=== PATIENT | male | born 1955 | race Caucasian/White ===

== ENCOUNTER 2019-09-25 07:57 | Outpatient (CLI) | payer OTHER, SELFPAY ==
--- NOTE | ~2019-09-25 | CT_ITS ---
EXAMINATION: CT chest wo con DATE: 09/25/2019 08:25 INDICATION: Diaphragmatic hernia without obstruction or gangrene TECHNIQUE: Computed tomography (CT) of the chest was performed without intravenous contrast. The dose -length product (DLP) was 374.94 mGy-cm. Automated exposure control and iterative reconstruction tech nique were employed. COMPARISON: None FINDINGS: The lungs are free of acute opacities. There is no pleural effusion or pneumothorax. No pat hologically enlarged thoracic lymph nodes are identified. The heart size is normal. Calcified coronar y artery atherosclerosis is noted. There is a large sliding hiatal hernia with intrathoracic location of much of the stomach which demonstrates organoaxial volvulus. There is mild thoracic spondylosis. There is a 1.8 cm mass in the lateral limb of the left adrenal gland. IMPRESSION: 1. Large sliding hiatal hernia containing much of the stomach. 2. Left adrenal nodule, likely an adenoma in the absence of known malignancy. Consider follow-up adre nal CT in 12 months. Reviewed, dictated and finalized at location A. IMPRESSION: 1. Large sliding hiatal hernia containing much of the stomach. 2. Left adrenal nodule, likely an adenoma in the absence of known malignancy. C onsider follow-up adrenal CT in 12 months.
== END 2019-09-25 07:58 | disposition home or self-care (01) ==
PROVIDERS: PCP Physician Assistant; Visit Provider Physician Assistant
DX: K44.9 Diaphragmatic hernia without obstruction or gangrene (principal)
CPT/HCPCS: 71250

== ENCOUNTER 2019-10-25 14:00 | Outpatient (CLI) | payer OTHER, SELFPAY ==
--- NOTE | 2019-10-25 14:27 | ECG_ITS ---
Measurements Intervals [place] Rate: 88 P: 36 [place]: 148 QRS: 17 QRSD: 88 T: -5 QT: 332 QTc: 404 Interpretive Statements SINUS RHYTHM FREQUENT ATRIAL PREMATURE COMPLEXES BORDERLINE ST-T WAVE ABNORMALITY- INF/LAT LEADS ABNORMAL ECG Electronically Signed On 10-25-2019 14:55:40 CDT by Kermit Noble D.O.
== END 2019-10-25 14:01 | disposition home or self-care (01) ==
PROVIDERS: PCP Internal Medicine; Visit Provider Internal Medicine
DX: I49.40 Unspecified premature depolarization (principal); R94.31 Abnormal electrocardiogram [ECG] [EKG]
CPT/HCPCS: 93005

== ENCOUNTER 2020-10-05 09:16 | Outpatient (CLI) | payer OTHER, MEDICARE, SELFPAY ==
--- NOTE | ~2020-10-05 | NM_ITS ---
EXAMINATION: NM stress w perf spect multi DATE: 10/05/2020 12:15 INDICATION: Coronary artery disease and shortness of breath. TECHNIQUE: Rest images were obtained following intravenous administration of 9.5 mCi Tc99m tetrofosmi n ([employer]). The patient performed an exercise activity. At peak exercise, 28.8 mCi Tc99m tetrofosmin (Myoview) was administered intravenously, and stress images were obtained. Data was reconstructed in to short axis and horizontal and vertical long axis SPECT images. Gated SPECT images were also obtain ed. COMPARISON: None. FINDINGS: There is normal left ventricular perfusion without definite evidence of reversible or fixed perfusion abnormality to suggest ischemia or infarction. There is normal left ventricular chamber size, wall motion and ejection fraction. Left ventricular ejection fraction measures 66%. IMPRESSION: 1. Normal myocardial perfusion at rest and during stress. 2. Left ventricular ejection fraction measuring 66%. Reviewed, dictated and finalized at location A.
--- NOTE | 2020-10-05 09:28 | EST_ITS ---
Patient Info Name: Kendrick Mathias Age: 65 years : 1955 Gender: Male Ht: 67 in Wt: 215 lbs BSA: 2.18 m2 Heart Rhythm: Sinus Rhythm Exam Date: 10/05/2020 10:27 AM Exam Location: [facility] Stress Patient Status: Outpatient Admit Date: 10/05/2020 Staff Ordering Physician: Regulo Saldaña PA-C Attending Provider: Regulo Saldaña PA-C Exercise Technologist: Sandra Yang CT Exercise Physician: Kermit Noble DO Exam Type: CA stress test treadmill w NM Study Info Indications R06.02 - Shortness of breath A nuclear stress test was performed. Summary 1. 1. Negative Philip exercise stress test for ischemic ST changes by ECG criteria. 2. 2. Reduced functional capacity, achieving 7 METs of workload. 3. 3. Frequent premature supraventricular complexes. 4. 4. Appropriate HR response to exercise. 5. 5. Appropriate HR recovery at 1 minute post exercise. 6. 6. Baseline hypertension. 7. 7. Nuclear scan to follow and will be reported separately. Please correlate with it. 8. 8. Patient informed of the above results. Protocol: Philip Stress ECG Details Stage: REST Duration (min): 2 min : 17 sec Speed (mph): 0.0 Grade (%): 0 HR (bpm): 80 SBP (mmHg): 168 DBP (mmHg): 100 METS: --- Stage: REST Duration (min): 14 min : 35 sec Speed (mph): 0.0 Grade (%): 0 HR (bpm): 90 SBP (mmHg): 179 DBP (mmHg): 98 METS: --- Stage: STAGE 1 Duration (min): 1 min : 0 sec Speed (mph): 1.7 Grade (%): 10 HR (bpm): 103 SBP (mmHg): 179 DBP (mmHg): 98 METS: --- Stage: STAGE 1 Duration (min): 2 min : 0 sec Speed (mph): 1.7 Grade (%): 10 HR (bpm): 112 SBP (mmHg): 179 DBP (mmHg): 98 METS: --- Stage: STAGE 1 Duration (min): 3 min : 0 sec Speed (mph): 1.7 Grade (%): 10 HR (bpm): 110 SBP (mmHg): 209 DBP (mmHg): 95 METS: --- Stage: STAGE 2 Duration (min): 1 min : 0 sec Speed (mph): 2.5 Grade (%): 12 HR (bpm): 127 SBP (mmHg): 209 DBP (mmHg): 95 METS: --- Stage: STAGE 2 Duration (min): 2 min : 0 sec Speed (mph): 2.5 Grade (%): 12 HR (bpm): 132 SBP (mmHg): 204 DBP (mmHg): 94 METS: --- Stage: STAGE 2 Duration (min): 2 min : 59 sec Speed (mph): 3.4 Grade (%): 14 HR (bpm): 135 SBP (mmHg): 204 DBP (mmHg): 94 METS: --- Stage: RECOVERY Duration (min): 1 min : 0 sec Speed (mph): 0.0 Grade (%): 0 HR (bpm): 116 SBP (mmHg): 195 DBP (mmHg): 91 METS: --- Stage: RECOVERY Duration (min): 1 min : 47 sec Speed (mph): 0.0 Grade (%): 0 HR (bpm): 102 SBP (mmHg): 195 DBP (mmHg): 91 METS: --- Rest HR: 90 bpm Peak HR: 135 bpm Rest Sys BP: 179 mmHg Peak Sys BP: 209 mmHg Max Pred HR: 155 bpm % Max Pred HR: 87 % Target HR: 132 bpm Max RPP: 28,215 bpm*mmHg Cramer Score: -1 Termination Reason: Reached target heart rate or workload Cardiac Symptoms: Shortness of breath Max ST Seg Deviation: -
== END 2020-10-05 09:17 | disposition home or self-care (01) ==
PROVIDERS: PCP Physician Assistant; Visit Provider Physician Assistant
DX: I25.10 Atherosclerotic heart disease of native coronary artery without angina pectoris (principal); R06.02 Shortness of breath
CPT/HCPCS: 78452; 93017; A9502

== ENCOUNTER → 2021-05-05 09:54 | Outpatient (CLI) | payer OTHER, MEDICARE, SELFPAY ==
--- NOTE | ~2021-05-05 | XR_ITS ---
EXAMINATION: XR UGIAC wo kub DATE: 05/05/2021 10:53 INDICATION: Diaphragmatic hernia TECHNIQUE: Thick barium contrast with gas effervescent crystals were administered orally. Fluoroscop ic images of the esophagus, stomach, and proximal duodenum were obtained in various projections. The reafter, overhead images of the abdomen were performed. 0.8 minutes of fluroscopy. DAP 32. 51 images. FINDINGS: CT dated 09/25/2019 The esophagus is normal in caliber, without mucosal lesions or strictures. There is normal esophagea l peristalsis. There is a large hiatal hernia with gastroesophageal reflux demonstrated on multiple o ccasions during the examination. The gastric folds are normal. The proximal duodenum is also normal in appearance. IMPRESSION: 1. Large hiatal hernia with gastroesophageal reflux. Reviewed, dictated and finalized at location B. NT LEAD TEACHER
== END ==
PROVIDERS: PCP Physician Assistant; Visit Provider Surgery
DX: K44.9 Diaphragmatic hernia without obstruction or gangrene (principal); K21.9 Gastro-esophageal reflux disease without esophagitis
CPT/HCPCS: 74246

== ENCOUNTER 2023-02-19 23:06 | Emergency (ER) | payer OTHER, MEDICARE, SELFPAY ==
--- NOTE | ~2023-02-19 | XR_ITS ---
Clinical Indication: Shortness of breath PA and lateral views of the chest: Comparison: None Findings: The lungs are clear, without evidence of focal consolidation or pleural effusion. Cardiome diastinal silhouette is within normal limits. Suspected moderate sliding hiatal hernia. Osseous struc tures are intact. Impression: Clear lungs. Suspected moderate sliding hiatal hernia. Reviewed, dictated and finalized at location . [facility] WEIGHER Impression: Clear lungs. Suspected moderate sliding hiatal hernia.
[2023-02-19 23:10] VITALS: BP 178/91; PULSE 97; RESP 19; TEMP 35.9; O2SAT 98
[2023-02-19 23:26] VITALS: PULSE 85; RESP 14; O2SAT 96
--- NOTE | 2023-02-19 23:28 | ECG_ITS ---
Measurements Intervals [place] Rate: 81 P: 34 AL: 151 QRS: 2 QRSD: 105 T: 15 QT: 361 QTc: 419 Interpretive Statements SINUS RHYTHM ATRIAL PREMATURE COMPLEXES CONSIDER INFERIOR INFARCT, AGE INDETERMINATE ABNORMAL ECG COMPARED TO ECG 10/25/2019 14:37:16 NO SIGNIFICANT CHANGES Electronically Signed On 02-20-2023 6:24:54 DRY ICE MAKER by Kermit Noble D.O.
[2023-02-19 23:30] VITALS: PULSE 83; RESP 16; O2SAT 96
[2023-02-19 23:31] VITALS: BP 157/91; PULSE 87; RESP 16; O2SAT 96
[2023-02-19 23:45] VITALS: PULSE 82; RESP 14; O2SAT 96
[2023-02-19 23:46] VITALS: BP 152/91; PULSE 85; RESP 13; O2SAT 97
[2023-02-20] VITALS (11 sets, daily range): BP systolic 143–169; BP diastolic 79–101; PULSE 78–89; RESP 14–19; O2SAT 94–98
[2023-02-20 01:09] LABS: NT Pro B Type Natriuretic Pept < 20 pg/mL (19.9-100); Troponin I < 0.012 ng/mL (0.000-0.034)
--- NOTE | 2023-02-20 01:21 | ED.GENADULT ---
HPI - General Adult General Chief complaint: Unspecified Stated complaint: stop breating when sleepingx2 days Time Seen by Provider: 02/19/23 23:33 Source: patient Mode of arrival: ambulatory Limitations: no limitations History of Present Illness HPI narrative: Patient is a 67-year-old male who presents to the ED was report of difficulty sleeping. Patient reports over the last 2-3 days, he has had trouble sleeping. He states he will fall asleep and be woken up feeling as though he has stopped breathing. He denies gasping for air when he wakes up. He states he had a similar issue several months ago and it was recommended he who obtain a sleep study, however he states his symptoms resolved on their own and he never had this performed. Patient reports having increased sinus pressure and congestion over the last 1 week. He was seen at an urgent care this morning and diagnosed with a sinus infection. Patient denies feeling short of breath throughout the day, denies dyspnea with exertion. He notes he takes walks around his neighborhood daily and does not feel increasingly short of breath with this. Denies increased fatigue. Denies chest pain. Denies lower extremity pain or swelling. Related Data Home Medications Medication Instructions Recorded Confirmed multivitamin (Multiple Vitamins 1 tablet PO DAILY 03/21/19 12/13/22 tablet) doxycycline hyclate 20 mg tablet 20 mg PO Q12H 06/14/22 12/13/22 Allergies Allergy/AdvReac Type Severity Reaction Status Date / Time No Known Allergies Allergy Verified 02/19/23 23:13 Review of Systems Review of Systems: CONSTITUTIONAL: Denies fever, chills, or sweats. CARDIOVASCULAR: Denies chest pain, palpitations, or edema. RESPIRATORY: See HPI. GASTROINTESTINAL: Denies abdominal pain, nausea, vomiting, or diarrhea. GENITOURINARY: Denies dysuria or hematuria. SKIN: Denies rash or itching. MUSCULOSKELETAL: Denies back pain, joint pain, or myalgia. All systems reviewed & are unremarkable except as noted in HPI and below PMFSH Surgical History Surgical History H/O nasal septoplasty History of surgical removal of pilonidal cyst Hx of tonsillectomy Family History Family History Mother Pulmonary embolism Father Acute myocardial infarction Sibling No problems noted. Sibling No problems noted. Other Cancer Social History Social History Smoking status: Never smoker Second hand tobacco smoke exposure: No Alcohol intake: never Substance use: never Lack of Transportation: No Lack of Food: Never True Current Housing: I Have Housing Concerned About Future Housing: No Difficulty Paying Gas/Electric Bills: No Difficulty Paying for Meds: No Currently Unemployed: No Education: High School Diploma/GED Difficulty w/ Childcare or Family Care: No Spiritual care concerns: No Exam Narrative: GENERAL: Well appearing, obese with BMI of 34.1, non-toxic, in no acute distress. HEAD: Normocephalic, atraumatic. NECK: Supple. No adenopathy, no masses. RESPIRATORY: Airway patent, respirations nonlabored. Clear to auscultation bilaterally, no rales, rhonchi, wheezing. CARDIOVASCULAR: Regular rate and rhythm without murmurs, rubs, or gallops. Peripheral pulses 2+ and equal bilaterally. MUSCULOSKELETAL: Moves all extremities. Strength/ROM intact without gross deformities. No lower extremity edema. SKIN: Warm, dry, normal color. No rashes. NEURO: A&O X3. Speech clear. Cranial nerves II-XII grossly intact. Steady gait. No ataxic movements. PSYCHIATRIC: Anxious. Normal interaction. Course Vital Signs Vital signs: Vital Signs Temperature 96.6 F L 02/19/23 23:10 Pulse Rate 97 02/19/23 23:10 Respiratory Rate 19 02/19/23 23:10 Blood Press
== END 2023-02-20 01:47 | disposition home or self-care (01) ==
PROVIDERS: Emergency Provider Physician Assistant; PCP Physician Assistant
DX: G47.9 Sleep disorder, unspecified (principal)
CPT/HCPCS: 36415; 71046; 83880; 84484; 93005; 99284

== ENCOUNTER 2023-02-25 00:16 | Emergency (ER) | payer OTHER, MEDICARE, SELFPAY ==
[2023-02-25] VITALS (12 sets, daily range): BP systolic 141–171; BP diastolic 83–100; PULSE 62–78; RESP 15–22; TEMP 36.6; O2SAT 95–100
--- NOTE | 2023-02-25 05:17 | ED.GENADULT ---
HPI - General Adult General Chief complaint: Unspecified Stated complaint: shortness of breath while supine Time Seen by Provider: 02/25/23 05:13 Source: patient Limitations: no limitations History of Present Illness HPI narrative: Patient presents to the emergency department complete difficulty sleeping. Patient states for the past 3 weeks he has been dealing with a sinus infection for which she has been on antibiotics and seems to be improving over has not fully gone away still having thick mucus. Patient states he was seen recently in the emergency for difficulty sleeping still having difficulty sleeping. Patient states that when he is off to sleep the quickly wakes back up feeling like he can not breathe. Patient denies orthopnea, history of heart disease, chest pain, shortness of breath, abdominal pain, fever, difficulty swallowing, leg swelling. Patient admits to history of snoring at and denies ever having any sleep studies performed. Related Data Home Medications Medication Instructions Recorded Confirmed multivitamin (Multiple Vitamins 1 tablet PO DAILY 03/21/19 12/13/22 tablet) doxycycline hyclate 20 mg tablet 20 mg PO Q12H 06/14/22 12/13/22 Allergies Allergy/AdvReac Type Severity Reaction Status Date / Time No Known Allergies Allergy Verified 02/25/23 00:32 Review of Systems Review of Systems: A 10 system review of systems was completed on the patient and is negative except for what is stated in the HPI. Nursing and ancillary documentation was reviewed. COUNT INCLUDES THE [facility] Surgical History Surgical History H/O nasal septoplasty History of surgical removal of pilonidal cyst Hx of tonsillectomy Family History Family History Mother Pulmonary embolism Father Acute myocardial infarction Sibling No problems noted. Sibling No problems noted. Other Cancer Social History Social History Smoking status: Never smoker Second hand tobacco smoke exposure: No Alcohol intake: never Substance use: never Lack of Transportation: No Lack of Food: Never True Current Housing: I Have Housing Concerned About Future Housing: No Difficulty Paying Gas/Electric Bills: No Difficulty Paying for Meds: No Currently Unemployed: No Education: High School Diploma/GED Difficulty w/ Childcare or Family Care: No Spiritual care concerns: No Comments At time of signature, I have reviewed and agree with nursing past medical, surgical, social and family history unless otherwise noted. Please see the nursing chart for further information. There is no relevant family history pertinent to the presenting complaint. Exam Narrative: CONST: No acute distress. Well nourished. HENMT: Head is normocephalic and atraumatic. Moist mucous membranes. No posterior oropharynx erythema. Uvula is midline. No oropharyngeal swelling. Thick yellow mucus seen in the posterior oropharynx extending from the nasal passages. No sinus tenderness to palpation. No trismus. EYES: No conjunctival icterus, injection, or pallor. PERRL. NECK: No meningeal signs. No palpable cervical lymphadenopathy. No palpable masses. Thyroid nontender to palpation. RESP: Able to speak in full sentences. Normal respiratory effort. CTAB. CARDIO: Regular rate. Regular rhythm. 2+ DP and radial pulses bilaterally. GI: Nondistended. No tenderness to palpation. Soft. : No CVA tenderness to palpation. SKIN: No rashes or lesions noted on exposed skin. NEURO: Oriented x3. Moves all extremities. EXTREM/MSK/BACK: No pedal edema. PSYCH: Normal affect. Course Vital Signs Vital signs: Vital Signs Temperature 97.8 F 02/25/23 00:28 Pulse Rate 72 02/25/23 00:28 Respiratory Rate 15 02/25/23 00:28 Blood Pressure 160/100 H
== END 2023-02-25 06:02 | disposition home or self-care (01) ==
PROVIDERS: Emergency Provider Student in an Organized Health Care Education/Training Program; PCP Physician Assistant
DX: G47.00 Insomnia, unspecified (principal); R09.81 Nasal congestion
CPT/HCPCS: 99281

== ENCOUNTER 2023-11-23 01:02 | Day surgery (SDC) | payer MEDICARE, OTHER, SELFPAY ==
[2023-11-06 09:21] VITALS: BMI 31.9
[2023-11-23 07:10] VITALS: BP 153/85; PULSE 87; RESP 14; TEMP 36.5; O2SAT 97; BMI 31.6
--- NOTE | 2023-11-23 07:23 | P.PNAN_ITS ---
Anes - Initial Pre Proc Eval Procedure: Operation Date: 11/23/23 08:30 Proposed Procedures p Screening Colonoscopy - Corona Urban DO Date/Time: 11/23/23 07:23 Surgeon: Corona Urban DO Pre Op Diagnosis: Screening for malignant neoplasm of colon Patient Data Age: 68 Gender: M Height: 1.7 m Weight: 91.5 kg Last Vital Signs Temp 97.7 F 11/23/23 07:10 Pulse 87 11/23/23 07:10 Resp 14 11/23/23 07:10 BP 153/85 H 11/23/23 07:10 Pulse Ox 97 11/23/23 07:10 O2 Del Method Room Air 11/23/23 07:10 Allergies Allergy/AdvReac Type Severity Reaction Status Date / Time No Known Allergies Allergy Verified 11/23/23 07:14 Home Medications Medication Instructions Recorded Confirmed Type multivitamin (Multiple Vitamins 1 tablet PO DAILY 03/21/19 11/23/23 History tablet) fluticasone propionate 50 2 spray intranasal DAILY #18 mL 03/13/23 11/23/23 Rx mcg/actuation nasal spray,suspension (Flonase Allergy Relief) pravastatin 10 mg tablet 10 mg PO DAILY 09/22/23 11/23/23 History Zantac-360 (famotidine) 1 tablet PO DAILY 11/06/23 11/23/23 History lisinopril 20 1 tablet PO DAILY #90 tabs 11/20/23 11/23/23 Rx mg-hydrochlorothiazide 12.5 mg tablet ECG: SR w APC's Patient hx anesthesia problems: none Family hx anesthesia problems: none Results Review: All pre-operative results and documents have been reviewed as part of the pre- operative evaluation. [facility] Surgical History Surgical History H/O nasal septoplasty History of surgical removal of pilonidal cyst Hx of tonsillectomy Family History Family History Mother Pulmonary embolism Father Acute myocardial infarction Sibling No problems noted. Sibling No problems noted. Other Cancer Social History Social History Social History: Caffeine- coffee Smoking packs per day: 1 Smoking cigarettes per day: 20.0 Years smoked: 2 Smoking pack-years: 2.00 Smoking status: Never smoker Tobacco type: cigarettes Second hand tobacco smoke exposure: No Alcohol intake: never Substance use: never Substance use type: does not use Lack of Transportation: No Lack of Food: Never True Current Housing: I Have Housing Concerned About Future Housing: No Difficulty Paying Gas/Electric Bills: No Difficulty Paying for Meds: No Currently Unemployed: No Education: High School Diploma/GED Difficulty w/ Childcare or Family Care: No Living arrangements: with family Spiritual care concerns: No Anes - Eval Final PreProcedure Day of Procedure 11/23/23 07:23 Patient weight: overweight Heart: regular rate and rhythm Lungs: clear to auscultation Airway: Mallampati scale class III Neurological: alert and oriented Last oral intake: >/= 8 hours ASA classification: III Anesthesia type and monitoring: general GIVS Results Review: All pre-operative results and documents have been reviewed as part of the pre- operative evaluation. Informed Consent: The patient's anesthetic plan and its attendant risks and benefits were discussed with the patient/family/POA. Questions were solicited and answers provided to the satisfaction of the patient/family/POA.
[2023-11-23] MEDS: LACTATED RINGERS 1,000 ML 150 ML IV CONT (07:27)
--- NOTE | 2023-11-23 08:30 | PM.IMHP ---
H&P: HPI History of Present Illness Date/Time: 11/23/23 08:30 Chief Complaint: Screening for colorectal cancer Narrative: this is a 68-year-old man who presents for colonoscopy. His last colonoscopy was greater than 10 years ago. He denies any hematochezia or melena. He denies any family history of colon cancer. Review of Systems Review of Systems: All systems reviewed & are unremarkable except as noted in HPI and below Constitutional: Constitutional: Denies chills, Denies fever(s), Denies headache(s) and Denies weight loss Eyes: Eyes: Denies change in vision ENT: Denies dizziness, Denies headache(s), Denies neck mass and Denies throat swelling Cardiovascular: Cardiovascular: Denies chest pain, Denies lightheadedness and Denies dyspnea Respiratory: Respiratory: Denies cough, Denies dyspnea and Denies wheezing Gastrointestinal: Gastrointestinal: Denies abdominal pain, Denies change in bowel habits, Denies nausea and Denies vomiting Genitourinary: Genitourinary: Denies hematuria and Denies dysuria Musculoskeletal: Musculoskeletal: Reports as per HPI Integumentary/Breasts: Skin/Breast: Reports as per HPI Neurologic: Denies dizziness and Denies headache(s) Allergic/Immunologic: Allergic/Immunologic: Denies throat swelling and Denies wheezing PMFSH Surgical History Surgical History H/O nasal septoplasty History of surgical removal of pilonidal cyst Hx of tonsillectomy Family History Family History Mother Pulmonary embolism Father Acute myocardial infarction Sibling No problems noted. Sibling No problems noted. Other Cancer Social History Social History Social History: Caffeine- coffee Smoking packs per day: 1 Smoking cigarettes per day: 20.0 Years smoked: 2 Smoking pack-years: 2.00 Smoking status: Never smoker Tobacco type: cigarettes Second hand tobacco smoke exposure: No Alcohol intake: never Substance use: never Substance use type: does not use Lack of Transportation: No Lack of Food: Never True Current Housing: I Have Housing Concerned About Future Housing: No Difficulty Paying Gas/Electric Bills: No Difficulty Paying for Meds: No Currently Unemployed: No Education: High School Diploma/GED Difficulty w/ Childcare or Family Care: No Living arrangements: with family Spiritual care concerns: No Meds Home Medications and Allergies Home Medications Medication Instructions Recorded Confirmed Type multivitamin (Multiple Vitamins 1 tablet PO DAILY 03/21/19 11/23/23 History tablet) fluticasone propionate 50 2 spray intranasal DAILY #18 mL 03/13/23 11/23/23 Rx mcg/actuation nasal spray,suspension (Flonase Allergy Relief) pravastatin 10 mg tablet 10 mg PO DAILY 09/22/23 11/23/23 History Zantac-360 (famotidine) 1 tablet PO DAILY 11/06/23 11/23/23 History lisinopril 20 1 tablet PO DAILY #90 tabs 11/20/23 11/23/23 Rx mg-hydrochlorothiazide 12.5 mg tablet Allergies Allergy/AdvReac Type Severity Reaction Status Date / Time No Known Allergies Allergy Verified 11/23/23 07:14 Vital Signs Vital Signs - 24 hr 11/23/23 07:10 Temperature 36.5 C Pulse Rate 87 Respiratory Rate 14 Blood Pressure 153/85 H Pulse Oximetry 97 Oxygen Delivery Room Air Exam Const: General: no acute distress and alert Orientation/consciousness: patient oriented x3 HENMT: Head: normocephalic and atraumatic Ears: hearing grossly normal bilaterally Face/Nose/Sinus: Normal nares present Mouth: Yes Normal oral and palatal mucosa present Eyes: Periorbital: periorbital findings normal Sclera: sclerae normal EOM: EOMs intact bilaterally Neck: Neck: normal visual inspection, no lymphadenopathy and trachea midline Chest: Chest palpation & inspection: normal inspection of the chest Resp: Effort & Inspection: normal respiratory effort Auscultation: clear to auscultation bilaterally Cardio: Jugular venous distension: no JVD Rate: regular rate Rhythm: regular rhythm Heart sounds: S1 normal heart sound present and S2 normal heart sound present Peripheral pulses: Peripheral pulses 2+ throughout GI: Inspection: normal to inspection GI Palp: Yes Soft to palpation, No Tenderness to palpation present (GI), No Guarding due to palpation present (GI) and No Rebound tenderness present Percussion: Yes normal to percussion Auscultation: normal bowel sounds : General: Yes no CVA tenderness Back/Spine/Pelvis: Back: no CVA tenderness Neuro: General: patient oriented x3, no focal motor deficits and CN's II-XI intact bilaterally Cognition (Neuro): normal cognition Speech: normal speech Motor exam (neuro): 5/5 motor strength present throughout Extrem: General: capillary refill normal and no clubbing, cyanosis or edema Assessment and Plan Assessment and plan (1) Screening for colorectal cancer: Code(s): Z12.11 - Encounter for screening for malignant neoplasm of colon; Z12.12 - Encounter for screening for malignant neoplasm of rectum Status: Acute Assessment and Plan: I have recommended colonoscopy. I have discussed the procedure, risks, benefits, and alternatives with the patient. All questions answered.
[2023-11-23 09:03] VITALS: BP 96/58; PULSE 78; RESP 15; O2SAT 94
[2023-11-23 09:13] VITALS: BP 92/58; PULSE 76; RESP 15; O2SAT 94
[2023-11-23 09:23] VITALS: BP 99/62; PULSE 80; RESP 23; O2SAT 94
== END 2023-11-23 09:35 | disposition home or self-care (01) ==
PROVIDERS: PCP Internal Medicine; Visit Provider Surgery
PROC: 0DJD8ZZ Inspection of Lower Intestinal Tract, Via Natural or Artificial Opening Endoscopic (ICD-10-PCS; CPT 45378; principal; 2023-11-23 08:30)
DX: Z12.11 Encounter for screening for malignant neoplasm of colon (principal); D12.5 Benign neoplasm of sigmoid colon; Z98.890 Other specified postprocedural states; Z80.9 Family history of malignant neoplasm, unspecified; Z82.49 Family history of ischemic heart disease and other diseases of the circulatory system
CPT/HCPCS: 45380; 88305; J2704; J7120

== ENCOUNTER 2024-03-15 10:39 | Outpatient (CLI) | payer MEDICARE, SELFPAY ==
--- NOTE | ~2024-03-15 | XR_ITS ---
Lumbosacral Spine: AP and lateral views Clinical History: Pain Findings: There is mild levoscoliosis. No fracture or subluxation seen. There is moderate degenerativ e disc narrowing throughout the lumbar spine. There is severe facet arthropathy throughout the lumbar spine. The sacroiliac joints are normally outlined. Impression: Severe degenerative spondylosis throughout the lumbar spine with mild levoscoliosis. Reviewed, dictated and finalized at location . SPERSON JEWELRY Impression: Severe degenerative spondylosis throughout the lumbar spine with mild levoscoli osis.
[2024-03-15 11:02] LABS: Basophils Absolute Auto 0.1 K/mm3 (0.0-0.1); Basophils Percent Auto 1.2 % (0.2-1.2); Eosinophils Absolute Auto 0.1 K/mm3 (0-0.3); Eosinophils Percent Auto 1.9 % (0-4.4); Hematocrit 50.3 % (42.0-52.0); Hemoglobin 15.7 g/dL (14.0-18.0); Immature Granulocyte Absolute 0.02 K/mm3 (0.00-0.031); Immature Granulocyte Percent A 0.3 % (0-0.5); Lymphocytes Absolute Auto 1.71 K/mm3 (0.9-3.2); Lymphocytes Percent Auto 29.1 % (18.3-44.2); Mean Corpuscular HGB Conc 31.2 g/dl (32-36); Mean Corpuscular Hemoglobin 24.6 pg (26-34); Mean Platelet Volume 8.8 fl (7.4-10.4); Monocytes Absolute Auto 0.5 K/mm3 (0.1-0.6); Monocytes Percent Auto 8.2 % (2.6-8.5); Neutrophils Absolute Auto 3.5 K/mm3 (1.3-6.7); Neutrophils Percent Auto 59.3 % (45.5-73.1); Platelet Count Result 189 k/mm3 (150-375); Red Blood Count 6.37 M/mm3 (4.6-6.20); Red Cell Distribution Width 16.8 % (11.5-14.5); White Blood Count 5.9 K/mm3 (4.5-10.0)
[2024-03-15 11:13] LABS: Alanine Aminotransferase 29 U/L (6-50); Albumin Level 4.7 g/dL (3.5-5.1); Alkaline Phosphatase 57 U/L (38-126); Anion Gap 4 mmol/L (4-12); Aspartate Amino Transferase 33 U/L (17-59); Bilirubin,Total 1.5 mg/dL (0.2-1.3); Blood Urea Nitrogen 19 mg/dL (9-20); Calcium 9.5 mg/dL (8.4-10.2); Carbon Dioxide 31 mmol/L (22-30); Chloride 103 mmol/L (98-107); Cholesterol 174 mg/dL (0-200); Estimated Glomerular Filt Rate 50; Glucose 106 mg/dL (65-110); HDL Direct 48 mg/dL; Potassium 4.5 mmol/L (3.4-5.0); Sodium 138 mmol/L (137-145); Triglycerides 199 mg/dL (<150)
[2024-03-15 11:24] LABS: LDL Cholesterol Direct 97 mg/dL
[2024-03-15 11:43] LABS: Prostate Specific Antigen 0.9 ng/mL (< OR = 4.0)
== END 2024-03-15 10:40 | disposition home or self-care (01) ==
PROVIDERS: PCP Internal Medicine; Visit Provider Internal Medicine
DX: E78.5 Hyperlipidemia, unspecified (principal); I10 Essential (primary) hypertension; G47.10 Hypersomnia, unspecified; D58.2 Other hemoglobinopathies; M54.50 Low back pain, unspecified; Z12.5 Encounter for screening for malignant neoplasm of prostate
CPT/HCPCS: 36415; 72100; 80053; 80061; 84153; 85025; G0103

== ENCOUNTER 2024-11-04 09:32 | Outpatient (CLI) | payer MEDICARE, SELFPAY ==
--- OUTSIDE RECORDS SUMMARY | 2024-11-04 09:54 | XMS_ITS | Referral Summary ---
Author Organization [facility] [address] Address [address] [place] [address] Care Team Providers Care Trimmer And Borer Machine Operator Name Role Phone Regulo Saldaña Primary Care Provider Allergies No known active allergies Medications doxycycline (PERIOSTAT) 20 mg tablet 06/01/2021 Active lisinopril-hydro CHLOROthiazide (ZESTORETIC) 20-12.5 mg per tablet 06/01/2021 Active pravastatin (PRAVACHOL) 10 mg tablet Take 1 tablet (10 mg total) by mouth daily Active aspirin 81 mg enteric coated tablet Take 1 tablet (81 mg total) by mouth daily Active Active Problems No known active problems Social History Tobacco Use Types Packs/Day Years Used Date Smoking Tobacco: Never Assessed Personal Safety Answer Date Recorded Getting School Help Needed Not on file 06/10 Sex and Gender Information Value Date Recorded Sex Assigned at Not on file Legal Sex Male 7:29 AM CDT Gender Identity Not on file Sexual Orientation Not on file Last Filed Vital Signs Vital Sign Reading Time Taken Comments Blood Pressure 150/90 02/19/2023 8:18 AM REGISTERED DENTAL ASSISTANT RDA Pulse 88 02/19/2023 8:18 AM REGISTERED DENTAL ASSISTANT RDA Temperature 37 C (98.6 F) 02/19/2023 8:18 AM REGISTERED DENTAL ASSISTANT RDA Respiratory Rate 18 02/19/2023 8:18 AM REGISTERED DENTAL ASSISTANT RDA Oxygen Saturation 98% 02/19/2023 8:18 AM REGISTERED DENTAL ASSISTANT RDA Inhaled Oxygen Concentration - - Weight 98.4 kg (217 lb) 02/19/2023 8:18 AM REGISTERED DENTAL ASSISTANT RDA Height - - Body Mass Index - - Plan of Treatment Not on file [facility] [id number] MEDICARE Care Teams Trimmer And Borer Machine Operator Relationship Specialty Start Date End Date Regulo Saldaña PA [address] [facility] [address] [place] [address] PCP - General Physician Risk Management Manager 10/30/19
--- OUTSIDE RECORDS SUMMARY | 2024-11-04 09:54 | XMS_ITS | Clinical Summary ---
Author [facility] Address [address] [place] [address] Care Team Providers Care Insurance Account Representative Name Role Phone Regulo Saldaña PA-C Primary Care Provide r Allergies No known active allergies Medications doxycycline hyclate (VIBRAMYCIN) 20 mg Tablet 06/01/2021 Active lisinopril-hydro CHLOROthiazide (ZESTORETIC) 20-12.5 mg tablet 06/01/2021 Active aspirin (ECOTRIN EC) 81 mg Tablet, Delayed Release (E.C.) Take 81 mg by mouth daily. Active pravastatin (PRAVACHOL) 10 mg tablet Take 10 mg by mouth daily with supper. 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 MANIFEST CLERK Gender Identity Not on file Sexual Orientation Not on file Last Filed Vital Signs Vital Sign Reading Time Taken Comments Blood Pressure 139/80 06/28/2022 11:01 AM CDT Pulse 86 06/28/2022 10:59 AM CDT Temperature 36.6 C (97.8 F) 06/28/2022 10:59 AM CDT Respiratory Rate 10 06/28/2022 10:59 AM CDT Oxygen Saturation 98% 06/28/2022 10:59 AM CDT Inhaled Oxygen Concentration - - Weight 98.4 kg (217 lb) 06/28/2022 10:59 AM CDT Height 170.2 cm (5' 7) 11/02/2021 11:25 AM CDT Body Mass Index 33.99 11/02/2021 11:25 AM CDT Plan of Treatment Health Maintenance Due Date Last Done Comments FIT/ DNA Q 3 YEARS (AUTO ORDER) 1973 FIT/FOBT Q 1 YEAR (AUTO ORDER) 1973 FLEX SIG/CT COLONOGRAPHY Q 5 YEARS (AUTO ORDER) 1972 DTAP/TDAP/TD VACCINES (1 - Tdap) 1974 COLORECTAL CANCER SCREENING (AUTO ORDER) 2000 COLORECTAL SCREENING 2000 Colorectal Cancer Screening (AUTO ORDER) 2000 Colorectal Cancer Screening 2000 FIT-DNA Q 3 years 2000 FIT/FOBT Q 1 year 2000 Flex Sig/CT Colonography Q 5 years 2000 PNEUMOCOCCAL VACCINE 50+ YEARS (1 of 1 - PCV) 03/10/20 05 ZOSTER VACCINE (1 of 2) 2005 Preventative Visit- Commercial 04/10/2024 INFLUENZA VACCINE (#1) 2024 RSV VACCINE (60+ or ) (1 - 1-dose 75+ series) [address] [place] [address] [id number] [employer] CHOICE MEDICARE PART A AND B Care Teams Insurance Account Representative Relationship Specialty Start Date End Date Regulo Saldaña PA-C PCP - General Physician Financial Advisor Trainee 06/10/21
--- OUTSIDE RECORDS SUMMARY | 2024-11-04 09:54 | XMS_ITS | Clinical Summary ---
Author Organization [facility] [place] [address] Address [address] [place] [address] Care Team Providers Care Piano And Organ Refinisher Name Role Phone Regulo Saldaña Primary Care [...] Comments Blood Pressure 150/90 02/19/2023 8:18 AM HELICOPTER TECHNICIAN Pulse 88 02/19/2023 8:18 AM HELICOPTER TECHNICIAN Temperature 37 C (98.6 F) 02/19/2023 8:18 AM HELICOPTER TECHNICIAN Respiratory Rate 18 02/19/2023 8:18 AM HELICOPTER TECHNICIAN Oxygen Saturation 98% 02/19/2023 8:18 AM HELICOPTER TECHNICIAN Inhaled Oxygen Concentration - - Weight 98.4 kg (217 lb) 02/19/2023 8:18 AM HELICOPTER TECHNICIAN Height - - Body Mass Index - - Plan of Treatment Health Maintenance Due Date Last Done Comments Colon Cancer Screening-Colonoscopy 1955 Depression Screening 1955 Fall Risk Assessment 1955 Hepatitis C Screening 1955 Prostate Cancer Screening-PSA 1955 DTaP/Tdap/Td Vaccine (1 - Tdap) 1966 Hepatitis B Screening 1973 Pneumococcal vaccine 65+ (1 of 1 - PCV) 2005 Zoster Vaccine (1 of 2) 2005 Abdominal Aortic Aneurysm (AAA) Screen 2020 Well Visit 65+ 2020 Influenza Vaccine (#1) 2024 03/04/2019, [address] [place] [address] [place] [id number] [facility] [place], [place] [id number] [facility] MEDICARE Care Teams Piano And Organ Refinisher Relationship Specialty Start Date End Date Regulo Saldaña PA [address] [facility] [address] [place], [place] [id number] PCP - General Physician Pick Up Man 10/30/19
[2024-11-04 10:18] LABS: Alanine Aminotransferase 29 U/L (6-50); Albumin Level 4.3 g/dL (3.5-5.1); Alkaline Phosphatase 57 U/L (38-126); Anion Gap 10 mmol/L (4-12); Aspartate Amino Transferase 36 U/L (17-59); Bilirubin,Total 1.3 mg/dL (0.2-1.3); Blood Urea Nitrogen 16 mg/dL (9-20); Calcium 9.3 mg/dL (8.4-10.2); Carbon Dioxide 23 mmol/L (22-30); Chloride 105 mmol/L (98-107); Cholesterol 218 mg/dL (0-200); Estimated Glomerular Filt Rate 52; Glucose 106 mg/dL (65-110); HDL Direct 44 mg/dL; Potassium 4.0 mmol/L (3.4-5.0); Sodium 138 mmol/L (137-145); Total Protein 8.0 g/dL (6.3-8.2); Triglycerides 176 mg/dL (<150)
== END 2024-11-04 09:33 | disposition home or self-care (01) ==
LOC: ANHLAB 09:33
PROVIDERS: PCP Internal Medicine; Visit Provider Internal Medicine Cardiovascular Disease
DX: E78.5 Hyperlipidemia, unspecified (principal)
CPT/HCPCS: 36415; 80053; 80061

== ENCOUNTER 2024-12-27 08:10 | Emergency (ER) | payer MEDICARE, SELFPAY ==
--- OUTSIDE RECORDS SUMMARY | 2024-12-27 08:13 | XMS_ITS | Clinical Summary ---
Author Organization [facility] [address] Address [address] [place] [address] Care Team Providers Care Bb Shot Packer Name Role Phone Regulo Saldaña Primary Care [...] Comments Blood Pressure 150/90 02/19/2023 8:18 AM ADMINISTRATOR PESTICIDE Pulse 88 02/19/2023 8:18 AM ADMINISTRATOR PESTICIDE Temperature 37 C (98.6 F) 02/19/2023 8:18 AM ADMINISTRATOR PESTICIDE Respiratory Rate 18 02/19/2023 8:18 AM ADMINISTRATOR PESTICIDE Oxygen Saturation 98% 02/19/2023 8:18 AM ADMINISTRATOR PESTICIDE Inhaled Oxygen Concentration - - Weight 98.4 kg (217 lb) 02/19/2023 8:18 AM ADMINISTRATOR PESTICIDE Height - - Body Mass Index - [...] 2024 03/04/2019, [address] [place] [address] [id number] [facility] [place], [place] [id number] [facility] MEDIC[facility] Care Teams Bb Shot Packer Relationship Specialty Start Date End Date Regulo Saldaña PA [address] [facility] [address] [place], [place] [id number] PCP - General Physician Neurodiagnostic Technician 10/30/19
--- OUTSIDE RECORDS SUMMARY | 2024-12-27 08:13 | XMS_ITS | Clinical Summary ---
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
--- NOTE | 2024-12-27 08:21 | ED_ITS ---
HPI - URI/Sore Throat General Chief Complaint: Upper Respiratory Infection Stated Complaint: cold/rsv/covid/flu Time Seen by Provider: 12/27/24 08:22 Source: patient, RN notes reviewed and old records reviewed Mode of arrival: ambulatory Limitations: no limitations History of Present Illness HPI Narrative: 69 year old male who presents to [facility] with complaints of cough and congestion with sinus congestion and drainage for about a weak. Patient report that he has some body aches also and is concerned for possibly having either COVID or FLU. Patient reports that his has some underlying health issues and he is concerned of exposing her to flu or Covid. Patient did see his PCP yesterday and was diagnosed with sinusitis and was started on Cefdinir and is taking Jazzy and also Aleve for his symptoms MD elicited complaint: cough and sore throat Pertinent past history: sinusitis Onset (ago): week(s) (body aches 2 days) Severity: moderate Description of mucous: clear Able to tolerate fluids by mouth: Yes Treatments prior to arrival: other (Jazzy, Aleve, and took 2 doses of Cefdinir which was prescribed yesterday at his doctor's visit) Related Data Home Medications ?Medication ?Instructions ?Recorded ?Confirmed ?Last Taken ?Type multivitamin (Multiple Vitamins 1 tablet PO DAILY 03/1012/27/24 Unknown History tablet) Allergies Allergy/AdvReac Type Severity Reaction Status Date / Time No Known Allergies Allergy Verified 12/27/24 08:11 Review of Systems Review of Systems: CONSTITUTIONAL: Denies malaise, chills, sweats, or fever. EYES: Denies visual changes, redness, or discharge. ENT: Reports rhinorrhea, congestion, sinus pain,no otalgia and no sore throat. CARDIOVASCULAR: Denies chest pain, palpitations, or edema. RESPIRATORY: Reports cough.? Denies dyspnea. GASTROINTESTINAL: Denies abdominal pain, nausea, vomiting, diarrhea SKIN: Denies rash or itching. MUSCULOSKELETAL: Reports myalgia. NEUROLOGIC: Denies headache. All systems reviewed & are unremarkable except as noted in HPI and below PMFSH Past Medical History Medical History (Updated 12/27/24 @ 09:18 by Jessica Caldwell NP) Sinusitis Hypertension Dyslipidemia Surgical History Surgical History Hx of tonsillectomy History of surgical removal of pilonidal cyst H/O nasal septoplasty Family History Family History Mother Pulmonary embolism Father Acute myocardial infarction Sibling No problems noted. Sibling No problems noted. Other Cancer Social History Social History Social History: Caffeine- coffee Smoking packs per day: 1 Smoking cigarettes per day: 20.0 Years smoked: 2 Smoking pack-years: 2.00 Smoking status: Former smoker Tobacco type: cigarettes Second hand tobacco smoke exposure: No Alcohol intake: never Substance use: never Substance use type: does not use Lack of Transportation: No Lack of Food: Never True Current Housing: I Have Housing Concerned About Future Housing: No Difficulty Paying Gas/Electric Bills: No Difficulty Paying for Meds: No Currently Unemployed: No Education: High School Diploma/GED Difficulty w/ Childcare or Family Care: No Living arrangements: with family Spiritual care concerns: No Comments At time of signature, agree with nursing past medical, surgical, social and family history. There is no relevant family history pertinent to the presenting complaint Exam Narrative: GENERAL: Well-appearing, well-nourished, and in no acute distress. HEAD: Normocephalic EYES: PERRLA, conjunctivae clear ENT: Nares clear, turbinates edematous and erythematous, clear discharge. Mucous membranes moist. TM pearly alejandro with dull light reflex bilaterally; no tragal tenderness. Oropharynx erythematous without lesions. Tonsils not present and without exudate, no drooling, no hoarseness, no trismus, uvula midline.post nasal drainage noted NECK: Supple. No lymphadenopathy CHEST: Clear to auscultation, breath sounds equal. No wheezing, rhonchi, rales, or stridor. No respiratory distress, speaks in full sentences.cough noted at times productive clear mucous, SAO2 98% HEART: Regular rate and rhythm. No murmur heard. SKIN: Warm, dry, no rash. NEURO: Alert and oriented x3. PSYCH: Normal mood and affect Course Course Emergency Course: Patient is aware of diagnosis, understands and agrees to treatment plan.? Anticipatory guidance given.? Patient agrees to follow-up as directed and is aware of reasons to seek care at the emergency department. Portions of this record may have been created with voice recognition software Level of Care: Express Care Visit Vital Signs Vital signs: Vital Signs Temperature 36.9 C 12/27/24 08:23 Pulse Rate 94 12/27/24 08:23 Respiratory Rate 18 12/27/24 08:23 Blood Pressure 140/84 12/27/24 08:23 Pulse Oximetry 98 12/27/24 08:23 Oxygen Delivery Room Air 12/27/24 08:23 Temperature 36.9 C 12/27/24 08:23 Pulse Rate 94 12/27/24 08:23 Respiratory Rate 18 12/27/24 08:23 Blood Pressure 140/84 12/27/24 08:23 Pulse Oximetry 98 12/27/24 08:23 Oxygen Delivery Room Air 12/27/24 08:23 Reviewed MDM - URI/Sore Throat MDM Narrative Medical decision making narrative: Differential diagnosis considered: Pitts virus, strep pharyngitis, allergic rhinitis, upper respiratory tract infection, sinusitis, rhinosinusitis, nasopharyngitis. viral pharyngitis, otitis media, otitis externa, pneumonia, bronchitis, viral cough syndrome, viral syndrome, and influenza.? Exam findings show no acute concerns or changes; patient is non-toxic appearing and is in no distress.? Patient is appropriate for outpatient treatment and follow-up. Differential Diagnosis Differential diagnosis: Likely upper respiratory infection, sinusitis, viral infection and other (concern for flu or COVID) Medical Records Attestation: I reviewed the patient's medical records. Lab Data Attestation: I reviewed the patient's lab results. Lab results narrative: Covid antigen negative Influenza A&B negative Labs: Lab Results 12/27/24 Range/Units 08:38 POC Influenza A Ag Negative (Negative) POC Influenza B Ag Negative (Negative) POC SARS CoV-2 Ag Negative (Negative) reviewed Critical Care Time Critical Care Time Critical Care Time: No Discharge Plan Discharge Clinical Impression: Sinusitis Qualifiers: Sinusitis location: pansinusitis Chronicity: acute Recurrence: non-recurrent Qualified Code(s): J01.40 - Acute pansinusitis, unspecified Patient Disposition: Home Condition: Stable Instructions: Antibiotic Form, Sinusitis (ED) Additional Instructions: Increase fluids especially juices and water [id number] cough and cold medicine of your choice for your symptoms Continue your antibiotics as previously ordered by your health practitioner Zyrtec Claritin or Jazzy daily Tylenol ibuprofen early for any discomfort or fevers heat to the face 20-30 minutes 4-6 times a day for pain Salt water gargles, throat lozenges or throat sprays as desired If your symptoms persist, change or worsen significantly before you can contact your personal physician then please, without delay, go to the emergency department for further evaluation. Follow-up with PCP in 7-10 days or sooner if needed Follow up with PCP soon in regards to your blood pressure which is elevated above threshold for referral. Blood pressure above 120/80 may indicate pre- hypertension. 140/84 Patient Language: Montserratian Prescriptions: No Action multivitamin [Multiple Vitamins] Tablet 1 tablet PO DAILY lisinopril-hydrochlorothiazide 20-12.5 mg tablet 1 tablet PO DAILY Qty: 90 2RF ezetimibe 10 mg tablet 10 mg PO DAILY Qty: 30 5RF famotidine 20 mg tablet 20 mg PO DAILY Qty: 90 2RF Follow-up/Referrals: Del Gandhi DO [Primary Care Provider, Internal Medicine] Time of Disposition: 08:40 Quality [place] Coma Scale Eyes: Open Verbal: Oriented and Alert Motor: Follows Commands [place] Coma Total Score: 15
[2024-12-27 08:23] VITALS: BP 140/84; PULSE 94; RESP 18; TEMP 36.9; O2SAT 98
[2024-12-27 08:39] LABS: EDCOVIDSCREEN Negative (Negative); EDINFLUASCREEN Negative (Negative); EDINFLUBSCREEN Negative (Negative)
== END 2024-12-27 08:42 | disposition home or self-care (01) ==
PROVIDERS: Emergency Provider Registered Nurse; PCP Internal Medicine
DX: J01.40 Acute pansinusitis, unspecified (principal); Z20.822 Contact with and (suspected) exposure to COVID-19; Z87.891 Personal history of nicotine dependence; I10 Essential (primary) hypertension; E78.5 Hyperlipidemia, unspecified
CPT/HCPCS: 87426; 87804; 99212; G0463

== ENCOUNTER 2025-03-17 08:54 | Outpatient (CLI) | payer MEDICARE, SELFPAY ==
[2025-03-17 09:09] LABS: Hematocrit 49.0 % (42.0-52.0); Hemoglobin 15.6 g/dL (14.0-18.0); Immature Granulocyte Percent A 0.2 % (0-0.5); Lymphocytes Absolute Auto 1.81 K/mm3 (0.9-3.2); Mean Corpuscular HGB Conc 31.8 g/dl (32-36); Mean Corpuscular Hemoglobin 25.8 pg (26-34); Mean Corpuscular Volume 81.1 fl (80-100); Nucleated Red Blood Cells Absolute Auto 0.000 K/mm3 (0.0-0.012); Nucleated Red Blood Cells Perc 0.0 % (0.0-0.2); Platelet Count Result 219 k/mm3 (150-375); Red Blood Count 6.04 M/mm3 (4.6-6.20); White Blood Count 5.5 K/mm3 (4.5-10.0)
[2025-03-17 09:32] LABS: Alanine Aminotransferase 30 U/L (6-50); Albumin Level 4.4 g/dL (3.5-5.1); Alkaline Phosphatase 60 U/L (38-126); Anion Gap 6 mmol/L (4-12); Aspartate Amino Transferase 46 U/L (17-59); Bilirubin,Total 1.1 mg/dL (0.2-1.3); Blood Urea Nitrogen 17 mg/dL (9-20); Calcium 9.3 mg/dL (8.4-10.2); Carbon Dioxide 27 mmol/L (22-30); Chloride 104 mmol/L (98-107); Cholesterol 199 mg/dL (0-200); Estimated Glomerular Filt Rate 54; Glucose 108 mg/dL (65-110); HDL Direct 47 mg/dL; Potassium 4.2 mmol/L (3.4-5.0); Sodium 137 mmol/L (137-145); Total Protein 8.2 g/dL (6.3-8.2); Triglycerides 184 mg/dL (<150)
[2025-03-17 10:08] LABS: Prostate Specific Antigen 1.2 ng/mL (< OR = 4.0)
== END 2025-03-17 08:55 | disposition home or self-care (01) ==
PROVIDERS: PCP Internal Medicine; Visit Provider Internal Medicine
DX: Z12.5 Encounter for screening for malignant neoplasm of prostate (principal); E78.5 Hyperlipidemia, unspecified; D75.1 Secondary polycythemia
CPT/HCPCS: 36415; 80053; 80061; 84153; 85025; G0103

== ENCOUNTER 2025-03-28 09:14 | Outpatient (CLI) | payer MEDICARE, SELFPAY ==
--- OUTSIDE RECORDS SUMMARY | 2025-03-28 09:30 | XMS_ITS | Clinical Summary ---
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
--- OUTSIDE RECORDS SUMMARY | 2025-03-28 09:30 | XMS_ITS | Clinical Summary ---
Author Organization [facility] [address] Address [address] [place] [address] Care Team Providers Care Correspondence School Teacher Name Role Phone Regulo Saldaña Primary Care [...] Comments Blood Pressure 150/90 02/19/2023 8:18 AM NET SQL DEVELOPER Pulse 88 02/19/2023 8:18 AM NET SQL DEVELOPER Temperature 37 C (98.6 F) 02/19/2023 8:18 AM NET SQL DEVELOPER Respiratory Rate 18 02/19/2023 8:18 AM NET SQL DEVELOPER Oxygen Saturation 98% 02/19/2023 8:18 AM NET SQL DEVELOPER Inhaled Oxygen Concentration - - Weight 98.4 kg (217 lb) 02/19/2023 8:18 AM NET SQL DEVELOPER Height - - Body Mass Index - - Plan of Treatment Health Maintenance Due Date Last Done Comments Colon Cancer Screening-Colonoscopy 1955 Depression Screening 1955 Fall Risk Assessment 1955 Hepatitis C Screening 1955 DTaP/Tdap/Td Vaccine (1 - Tdap) 1966 Hepatitis B Screening 1973 Pneumococcal vaccine 65+ (1 of 1 - PCV) 2005 Zoster Vaccine (1 of 2) 2005 Abdominal Aortic Aneurysm (AAA) Screen 2020 Well Visit 65+ 2020 Influenza Vaccine (#1) 2024 03/04/2019, 2012 [facility] Address: [facility] [id number] [place] [id number] [facility] MEDIC[facility] Care Teams Correspondence School Teacher Relationship Specialty Start Date End Date Regulo Saldaña PA [address] [facility] [address] [place] [address] PCP - General Physician Talent Acquisition Administrator 10/30/19
[2025-03-28 10:34] LABS: Iron 57 ug/dL (49-181)
[2025-03-28 10:43] LABS: Percent Iron Saturation 12 % (20-50)
[2025-03-28 11:14] LABS: Ferritin 11.00 ng/mL (11.1-264)
[2025-03-28 11:41] LABS: Vitamin B12 770.0 pg/mL (239-931)
== END 2025-03-28 09:15 | disposition home or self-care (01) ==
PROVIDERS: PCP Internal Medicine; Visit Provider Internal Medicine
DX: E53.8 Deficiency of other specified B group vitamins (principal); D64.9 Anemia, unspecified; R53.83 Other fatigue
CPT/HCPCS: 36415; 82607; 82728; 82746; 83540; 83550